=== PATIENT | female | born 1950 | race Caucasian/White ===

== ENCOUNTER 2016-07-31 11:38 | Emergency (ER) ==
[2016-07-31 11:44] VITALS: BP 136/74
--- NOTE | 2016-07-31 12:03 | PROVIDER DOCUMENTATION ---
HPI-Musculoskeletal Pain/Inj - GENERAL Chief Complaint: Fall Stated Complaint: FALL Time Seen by Provider: 07/31/16 11:47 Source: patient - HX OF PRESENT ILLNESS-MUSKULOSKELTAL Nature of Presenting Problem: 65 y/o WF c/o fall 2 days ago where she was walking in the yard, stepped in a hole and fell on the right side. Denies hitting head or loc. States her right ribs, lower back and right hip has been hurting since. She is ambulatory. They have been using Ibuprofen and a topical horse medications for pain, I am unsure of the medication in the horse lotion. States this has helped.Pain is aching, rib pain wrose with breathing in, and radiates to the entire right side of the body. denies weakness, paresthesias or decrease in ADLs. Quality of Pain: reports: aching Severity in ED: mild Onset/Duration: 2 days ago Timing: still present, intermittent Modifying Factors: improves with: analgesics Any recent injury?: Yes Locality of Occurance: Home Similar Symptoms Previously?: No Recently seen or treated by another doctor?: No Review of Systems - Adult - REVIEW OF SYSTEMS - ADULT Constitutional: reports: no symptoms reported. denies: chills, fever, fatique Eyes: reports: no symptoms reported. denies: decreased vision, blurred vision, double vision, eye pain Ears, Nose, Mouth & Throat: reports: no symptoms reported. denies: ear pain, nose pain, throat pain Cardiovascular: reports: no symptoms reported. denies: chest pain, palpitations Respiratory: reports: no symptoms reported. denies: cough, shortness of breath , wheezing Gastrointestinal: reports: no symptoms reported. denies: abdominal pain, diarrhea, nausea, vomiting Genitourinary: reports: no symptoms reported. denies: dysuria, discharge, frequency, incontinence Musculoskeletal: reports: see HPI, bone pain, back pain, joint pain, muscle aches. denies: joint swelling, neck pain Integumentary: reports: no symptoms reported. denies: rash Neurological: reports: no symptoms reported. denies: ataxia, dizziness/vertigo , headache/migraines Psychiatric: reports: no symptoms reported Endocrine: reports: no symptoms reported Hematologic/Lymphatic: reports: no symptoms reported Allergic/Immunologic: reports: no symptoms reported All Other Systems: Reviewed and Negative Past History - Adult - PAST MEDICAL HISTORY-ADULT Review of Records: reports: Old Records Reviewed, Nursing Assessment Review, Medications Reviewed, Social history reviewed & non-contributory. Major Childhood Illnesses: reports: denies history Cardiovascular: reports: denies history Respiratory: reports: denies history Gastrointestinal: reports: denies history Obstetrical/Gynecological: reports: denies history Genitourinary: reports: denies history Musculoskeletal: reports: denies history Neurological: reports: denies history Endocrine/Immune: reports: Diabetes Other Conditions: reports: denies history - PRIOR SURGERIES/PROCEDURES Surgical/Procedure History: reports: reviewed, not pertinent - IMMUNIZATION STATUS Childhood Immunizations: See Nurse Assessment Flu Vaccine: See Nurse Assessment - FAMILY HISTORY Family History: reviewed, not pertinent - SOCIAL HISTORY Smoking: denies Substance Use: none/never Alcohol Use Frequency: never Physical Exam-Injury Related - Physical Exam-Injury Related Initial Vital Signs Reviewed: Yes General Appearance: appears well, alert, no apparent distress Eyes: PERRL/EOMI, pink conjunctivae Head, Ears, Nose, Mouth & Throat: normocephalic/atraumatic, moist mucous membranes Neck: non-tender, full range of motion, supple, normal inspection. negative: C- spine tenderness Respiratory: chest non-tender, lungs clear, normal breath sounds, no pleuratic chest pain, no respiratory distress, no accessory muscle use. negative: respiratory distress, decreased breath sounds, accessory muscle use, crackles, rales, rhonchi, stridor, wheezing, prolonged expiration Cardiovascular: normal peripheral pulses, regular rate, rhythm Peripheral Pulses: radial (R): 2+, radial (L): 2+, dorsalis-pedis (R): 2+, dorsalis-pedis (L): 2+ Extremity: normal range of motion, non-tender, normal gait, normal inspection Integumentary: normal color, warm/dry, blanching Neurologic: grossly normal, no motor/sensory deficits Psych/Mental Status: normal mood/affect, normal thought content, normal thought process, oriented x 3 - Glascow Coma Score Best Eye Response ([place]): (4) open spontaneously Best Verbal Response ([place]): (5) oriented Best Motor Response ([place]): (6) obeys commands Progress - PLAN OF CARE/RESULTS Progress/Plan/Lab Results: Vital Signs Temp Pulse Resp BP Pulse Ox 07/31/16 11:41 97.7 F 88 20 136/74 96 latex Allergy (Verified 07/31/16 12:12) HIVES meperidine HCl * [From Demerol] Allergy (Verified 07/31/16 12:12) HIVES Penicillins Allergy (Verified 07/31/16 12:12) Unknown Sulfa (Sulfonamide Antibiotics) Allergy (Verified 07/31/16 12:12) HIVES Orders Category Date Time Status LUMBAR SPINE [RAD] Stat Exams 07/31/16 11:48 Taken RIBS UNILAT W/PA CHEST RIGHT [RAD] Stat Exams 07/31/16 11:48 Taken XRAY PELVIS W/HIP 2-3VW RT [RAD] Stat Exams 07/31/16 12:17 Taken - XRAY 1 XRAY: Right XRAY Study: Chest, Ribs Impression: Abnormal (9th rib fx on right reviewed with Dr. Sherwood) 2 XRAY: Right XRAY Study: Pelvis, Hip Impression: Normal (NAD per radiology) 3 XRAY: Bilateral XRAY Study: Lumbar Spine Impression: Normal (NAD reviewed with Dr Sherwood) Departure - Departure Time of Disposition Order: 12:44 DIAGNOSIS: Closed rib fracture Qualifiers: Encounter type: initial encounter Rib fracture type: single rib Laterality: right Qualified Code(s): S22.31XA - Fracture of one rib, right side, initial encounter for closed fracture Disposition: HOME 01 Certified Medical Emergency: Emergent Condition: Stable Additional Instructions: Follow up with Dr. Purvis orthopedic. ED Follow Up Instructions: You have been treated by a care provider in the Emergency Department. These instructions are being provided to you so you can have an understanding of how to care for yourself upon discharge. Upon discharge from the Emergency Department, you are responsible for making arrangements for follow-up care by a physician of your choice. Take all prescribed medications as directed. Return to the Emergency Department immediately for any new or worsening symptoms. You may call the Physician Referral phone number at [phone] to obtain a list of Physicians who are taking new patients. Prescriptions: Tramadol [Ultram] 50 mg PO Q8HR #20 tablet Referrals: Cedric Ortiz MD [Primary Care Provider] - Quinton Fitzpatrick MD [STAFF PHYSICIAN] - Attestation - Physician/ [place] Attestation Patient care was provided by Advanced Practice Provider:: Yes Advanced Practice Provider:: Suri Peterson Advanced Practice Provider documentation review:: The Mid-level provider documentation, treatment plan and medical decision making was reviewed by the physician who agrees with all treatment and medical decision making by the MLP.
--- NOTE | 2016-07-31 14:45 | Diag Imaging Result Document ---
PROCEDURE NAME: RIBS UNILAT W/PA CHEST RIGHT - 07/31/2016 PA CHEST AND RIGHT RIB SERIES, 3 VIEWS: FINDINGS: There is no evidence of pneumothorax or pleural fluid collection. There is a torus- type injury of the distal 6th rib on the right. This is not associated with pleural fluid or other acute pulmonary disease. The heart size and pulmonary vascularity are within normal limits. IMPRESSION: Right 6th rib fracture.
--- NOTE | 2016-07-31 14:46 | Diag Imaging Result Document ---
PROCEDURE NAME: LUMBAR SPINE - 07/31/2016 LUMBOSACRAL SPINE SERIES WITH OBLIQUES, 6 VIEWS: FINDINGS: The pedicles are intact. There are degenerative facet changes at L4-5 and L5-S1. The disk spaces are well maintained. There is no evidence of fracture or subluxation. IMPRESSION: Degenerative facet disease.
--- NOTE | 2016-07-31 17:21 | Diag Imaging Result Document ---
PROCEDURE NAME: XRAY PELVIS W/HIP 2-3VW RT - 07/31/2016 AP PELVIS AND RIGHT HIP, 2 VIEWS: FINDINGS: The hip joint spaces are well maintained. There is no evidence of acute fracture or dislocation. IMPRESSION: No evidence of acute disease.
== END 2016-07-31 14:45 | disposition home or self-care (01) ==
LOC: ED 11:38
DX: S22.31XA Fracture of one rib, right side, initial encounter for closed fracture (principal); R07.81 Pleurodynia; M54.5 Low back pain; M25.551 Pain in right hip; M79.1 Myalgia; E11.9 Type 2 diabetes mellitus without complications; W19.XXXA Unspecified fall, initial encounter; Z79.899 Other long term (current) drug therapy
CPT/HCPCS: 71101; 72110